=== PATIENT | male | born 1955 | race Caucasian/White ===

== ENCOUNTER 2017-12-25 08:00 | Inpatient (IN) | payer OTHER ==
[~2017-12-25] VITALS: Ht 177.8 cm; Wt 121.0 kg
[~2017-12-25 08:00] MED LIST: CHOL2000 PO; DIVA-68 PO; LISI5TAB7 PO; SIMV20TA3 PO; TAMS0.4C2 PO
[2017-12-25] MEDS ORDERED: DIVA250T6 PO (09:40)
[2017-12-25] MEDS ORDERED: LACTATED RINGERS 1,000 ML IV SCH (09:41)
[2017-12-25] MEDS ORDERED: EPINEPHRINE 1 MG/ML, 1ML ONE (11:10)
[2017-12-25] MEDS ORDERED: BACITRACIN 50,000 UNIT ONE (11:10)
[2017-12-25] MEDS ORDERED: BUPIVACAINE/PF 0.5% ONE (11:10)
[2017-12-25] MEDS ORDERED: THROMBIN 5,000 UNIT VIAL TP ONE (11:10)
[2017-12-25] MEDS ORDERED: BUPIVACAINE/PF 0.25% ONE ×2 (11:22)
[2017-12-25] MEDS ORDERED: BACITRACIN OINT 500U/GM, 15 GM ONE (11:23)
[2017-12-25] MEDS ORDERED: REMIFENTANIL 2 MG ONE (11:38)
[2017-12-25] MEDS ORDERED: VANCOMYCIN 1,000 MG ONE (12:05)
[2017-12-25] MEDS ORDERED: PHENYLEPHRINE 10 MG/ML ONE (12:12)
[2017-12-25] MEDS ORDERED: PROPOFOL 10 MG/ML, 20ML ONE (12:16)
[2017-12-25] MEDS ORDERED: ROCURONIUM 10 MG/ML,10ML ONE (12:32)
[2017-12-25] MEDS ORDERED: DEXAMETHASONE 4 MG/ML, 1ML ONE ×2 (12:32)
[2017-12-25] MEDS ORDERED: LIDOCAINE-MPF 2% ,5ML ONE (12:50)
[2017-12-25] MEDS ORDERED: ONDANSETRON 2MG/ML, 2ML ONE (13:28)
[2017-12-25] MEDS ORDERED: ACETAMINOPHEN 325 MG TABLET PO PRN (13:30)
[2017-12-25] MEDS ORDERED: OXYcodone 5 MG/5 ML ORAL.SOL UDC PO PRN (13:30)
[2017-12-25] MEDS ORDERED: MEPERIDINE/PF 25MG/0.5ML IVPush PRN (13:30)
[2017-12-25] MEDS ORDERED: HYDROcodone/APAP 7.5-325MG/15ML UDC PO PRN (13:30)
[2017-12-25] MEDS ORDERED: ONDANSETRON 2MG/ML, 2ML IVPush PRN (13:30)
[2017-12-25] MEDS ORDERED: FENTANYL PF 100 MCG/2ML ONE ×3 (13:34→15:00)
[2017-12-25] MEDS ORDERED: NEOSTIGMINE 1 MG/ML, 10ML ONE (13:52)
[2017-12-25] MEDS ORDERED: GLYCOPYRROLATE 0.2MG/1ML, 5ML ONE (13:52)
[2017-12-25] MEDS ORDERED: ACETAMINOPHEN 650 MG/20.3 ML UDC ONE (14:18)
[2017-12-25] MEDS ORDERED: morphine SULFATE 10 MG/ML, 1ML ONE (14:18)
[2017-12-25] MEDS ORDERED: OXYcodone 5 MG/5 ML ORAL.SOL UDC ONE (14:18)
[2017-12-25] MEDS: FENTANYL PF 100 MCG/2ML IV PRN ×3 (14:23→15:08)
[2017-12-25] MEDS: morphine SULFATE 10 MG/ML, 1ML IV PRN ×2 (14:25→14:46)
[2017-12-25] MEDS ORDERED: OXYcodone/APAP 5/325MG TABLET PO PRN (16:00)
[2017-12-25] MEDS ORDERED: BISACODYL 10 MG SUPP PR PRN (16:00)
[2017-12-25] MEDS ORDERED: DIPHENHYDRAMINE 50 MG CAPSULE PO PRN (16:00)
[2017-12-25] MEDS ORDERED: METHOCARBAMOL 750 MG TABLET PO PRN (16:00)
[2017-12-25] MEDS ORDERED: LABETALOL 5MG/ML, 20ML IV PRN (16:00)
[2017-12-25] MEDS ORDERED: DIPHENHYDRAMINE 50 MG/ML, 1ML IM PRN (16:00)
[2017-12-25] MEDS ORDERED: MAGNESIUM HYDROXIDE 8%, 30ML UDC PO PRN (16:00)
[2017-12-25] MEDS ORDERED: ONDANSETRON 2MG/ML, 2ML IV PRN (16:00)
[2017-12-25] MEDS ORDERED: HYDROmorphone 2 MG/ML, 1ML IVPush PRN (16:00)
[2017-12-25] MEDS ORDERED: PROMETHAZINE 25 MG/ML, 1ML IM PRN (16:00)
[2017-12-25] MEDS: HYDROcodone/APAP 5/325 TABLET PO PRN ×2 (17:27→21:30)
[2017-12-25 19:11] VITALS: BP 119/74
[2017-12-25] MEDS: DIVALPROEX 250 MG TAB.ER.24H PO SCH (20:15)
[2017-12-25] MEDS: TAMSULOSIN 0.4 MG CAP.ER.24H PO SCH (20:15)
[2017-12-25] MEDS: SIMVASTATIN 20 MG TABLET PO SCH (20:15)
[2017-12-25] MEDS: CHOLECALCIFEROL 1,000 UNIT TABLET PO SCH (20:15)
[2017-12-25] MEDS: LISINOPRIL 5 MG TABLET PO SCH (20:16)
[2017-12-25] MEDS: NS + 20MEQ KCL 1,000 ML IV SCH (20:16)
[2017-12-25] MEDS: CEFAZOLIN PMX 1GM/50ML 50 ML IVPB SCH (20:17)
[2017-12-25] MEDS ORDERED: ZOLPIDEM 5MG TABLET PO PRN (21:00)
[2017-12-25 23:35] VITALS: BP 112/72
[2017-12-26] MEDS: HYDROcodone/APAP 5/325 TABLET PO PRN ×5 (02:27→20:22)
[2017-12-26 02:40] VITALS: BP 117/74
[2017-12-26] MEDS: NS + 20MEQ KCL 1,000 ML IV SCH ×2 (03:41→21:00)
[2017-12-26] MEDS: CEFAZOLIN PMX 1GM/50ML 50 ML IVPB SCH (04:16)
[2017-12-26] MEDS: ENOXAPARIN 40 MG/0.4 ML SQ SCH (06:26)
[2017-12-26 06:32] VITALS: BP 124/73
[2017-12-26] MEDS: SENNA/DOCUSATE TABLET PO SCH (10:39)
[2017-12-26 13:19] VITALS: BP 118/71
[2017-12-26 20:09] VITALS: BP 115/68
[2017-12-26] MEDS: DIVALPROEX 250 MG TAB.ER.24H PO SCH (21:16)
[2017-12-26] MEDS: CHOLECALCIFEROL 1,000 UNIT TABLET PO SCH (21:16)
[2017-12-26] MEDS: LISINOPRIL 5 MG TABLET PO SCH (21:16)
[2017-12-26] MEDS: SIMVASTATIN 20 MG TABLET PO SCH (21:16)
[2017-12-26] MEDS: TAMSULOSIN 0.4 MG CAP.ER.24H PO SCH (21:21)
[2017-12-27 00:48] VITALS: BP 120/73
[2017-12-27] MEDS ORDERED: OXYC-302 PO (01:16)
[2017-12-27] MEDS ORDERED: METH750T87 PO (01:17)
[2017-12-27] MEDS: NS + 20MEQ KCL 1,000 ML IV SCH (02:08)
[2017-12-27] MEDS: HYDROcodone/APAP 5/325 TABLET PO PRN ×2 (04:34→09:19)
[2017-12-27] MEDS: ENOXAPARIN 40 MG/0.4 ML SQ SCH (05:45)
[2017-12-27 07:17] VITALS: BP 117/76
[2017-12-27] MEDS: SENNA/DOCUSATE TABLET PO SCH (09:19)
[2017-12-27 09:20] VITALS: BP 126/60
== END 2017-12-27 10:11 | disposition home or self-care (01) | DRG 517 ==
LOC: ORIP 09:01 → 4NOR 15:55
PROVIDERS: ADMIT Neurological Surgery; ATTEND Neurological Surgery
PROC: 4A11X4G Monitoring of Peripheral Nervous Electrical Activity, Intraoperative, External Approach (ICD-10-PCS; 2017-12-25)
PROC: 01NB0ZZ Release Lumbar Nerve, Open Approach (ICD-10-PCS; principal; 2017-12-25 11:00)
DX: M48.062 Spinal stenosis, lumbar region with neurogenic claudication (principal); I73.9 Peripheral vascular disease, unspecified; M47.26 Other spondylosis with radiculopathy, lumbar region
CPT/HCPCS: 72100; 82962; C1729; J0171; J0690; J1100; J1650; J2405; J2704; J2710; J3010; J3370; J3480; J3490; J2270; J2370; J7120